=== PATIENT | female | born 1980 | race Caucasian/White ===

== ENCOUNTER → 2022-04-04 09:46 | Outpatient (CLI) | payer OTHER, SELFPAY ==
[2022-04-04 10:27] LABS: Hematocrit 43.7 % (36-46); Hemoglobin 15.2 g/dL (12.0-16.0); Mean Corpuscular HGB Conc 34.8 % (30-36); Mean Corpuscular Hemoglobin 31.6 PG (26-34); Mean Corpuscular Volume 90.7 fL (80-100); Platelet Count 244 X10^3/uL (150-400); Red Blood Cell Count 4.82 X10^6/uL (4.0-5.2); Red Cell Distribution Width 13.2 % (11.6-14.8); White Blood Cell Count 7.9 X10^3/uL (4.5-11.0)
[2022-04-04 10:49] LABS: Alanine Aminotransferase 19 IU/L (<35); Albumin 4.6 g/dL (3.5-5.0); Albumin Globulin Ratio 1.4 (1.0-2.8); Alkaline Phosphatase 50 U/L (38-126); Aspartate Aminotransferase 21 IU/L (14-36); BUN Creatinine Ratio 16.7 (6-22); Bilirubin Total 0.4 mg/dL (0.2-1.3); Blood Urea Nitrogen 10 mg/dL (7-17); Calcium 9.1 mg/dL (8.4-10.2); Carbon Dioxide 28 mmol/L (22-32); Chloride 97 mmol/L (98-107); Cholesterol 176 mg/dL (140-199); Estimated Glomerular Filt Rate > 60 mL/min (>60); Globulin 3.3 g/dL (1.7-4.1); Glucose 100 mg/dL (70-100); HDL Cholesterol 71 mg/dL (40-60); HEMOLYSIS < 15 (0-50); LDL Cholesterol Calculated 95 mg/dL (<100); Potassium 3.9 mmol/L (3.4-5.1); Sodium 134 mmol/L (137-145); Total Protein 7.9 g/dL (6.3-8.2); Triglycerides 48 mg/dL (35-150)
[2022-04-04 11:03] LABS: Free T3, Triiodothyronine Free 4.81 pg/mL (2.77-5.27); Free T4, Direct Thyroxine 1.49 ng/dL (0.78-2.19)
[2022-04-04 11:05] LABS: Vitamin D 25 Hydroxy (D3) 39.4 ng/mL (30.0-100.0)
[2022-04-04 11:17] LABS: Thyroid Stimulating Hormone 0.506 uIU/mL (0.47-4.68)
== END ==
PROVIDERS: PCP Family Medicine; Referring Provider Family Medicine; Visit Provider Family Medicine
DX: D64.9 Anemia, unspecified (principal); E05.90 Thyrotoxicosis, unspecified without thyrotoxic crisis or storm; E55.9 Vitamin D deficiency, unspecified; F41.9 Anxiety disorder, unspecified; N63.10 Unspecified lump in the right breast, unspecified quadrant
CPT/HCPCS: 36415; 80053; 80061; 82306; 84439; 84443; 84481; 85027